=== PATIENT | male | born 1990 | race African-American/Black ===

== ENCOUNTER 2021-01-11 00:26 | Emergency (ER) | payer OTHER ==
[~2021-01-11] VITALS: Ht 170.2 cm; Wt 74.8 kg
[2021-01-11] MEDS ORDERED: ZOFRAN ODT4 MG PO ×2 (03:57→04:45)
[2021-01-11] MEDS ORDERED: FLAGYL500 M1 PO ×2 (04:25→04:45)
[2021-01-11 04:50] VITALS: BP 127/91
== END 2021-01-11 04:51 | disposition home or self-care (01) ==
LOC: ER 00:26
DX: R11.2 Nausea with vomiting, unspecified (principal); F12.90 Cannabis use, unspecified, uncomplicated